=== PATIENT | female | born 1955 | race Caucasian/White ===

== ENCOUNTER → 2018-08-27 11:59 | Outpatient (CLI) | payer MEDICARE, SELFPAY | PROVIDERS: Family Provider Family Medicine; PCP Family Medicine; Visit Provider Physician Assistant | DX: N63.20 Unspecified lump in the left breast, unspecified quadrant (principal) ==

== ENCOUNTER → 2018-10-03 13:32 | Outpatient (CLI) | payer MEDICARE, SELFPAY ==
--- NOTE | 2018-10-03 13:34 | DI.MG.S_ITS ---
BILATERAL DIGITAL DIAGNOSTIC MAMMOGRAM 3D/2D SHORT-TERM FOLLOW-UP: 10/03/2018 CLINICAL: Patient returns for 6 month follow up of left breast, due for bilateral exam. Comparison is made to exams dated: 08/22/2017 mammogram - [facility], 12/08/2009 mammogram, and 05/04/2007 mammogram - [facility]. The tissue of both breasts is predominantly fatty. No significant masses, calcifications, or other findings are seen in either breast. IMPRESSION: INCOMPLETE: NEEDS ADDITIONAL IMAGING EVALUATION There is no mammographic abnormality seen in the left breast to correspond with the ultrasound finding from September,, however, ultrasound is recommended for follow up and will be performed immediatly following this exam. This exam was interpreted at Station ID: [id number]. NOTE: For mammograms, a report in lay terms will be sent to the patient. Approximately 15% of breast malignancies will not be visualized mammographically. In the management of a palpable breast mass, a negative mammogram must not discourage biopsy of a clinically suspicious lesion. Electronically Signed By: Denise Celis M.D. lk/:10/04/2018 08:09:05 ACR BI-RADS Category 0: Incomplete [id number]
--- NOTE | 2018-10-03 13:34 | DI.US.S_ITS ---
ULTRASOUND OF LEFT BREAST: 10/03/2018 CLINICAL: Patient returns for follow-up of the left breast ultrasound. Comparison is made to exams dated: 08/22/2017 ultrasound, 08/22/2017 mammogram - [facility], and 12/08/2009 mammogram - [facility]. Ultrasound of the left breast was performed on the area of interest. Castillo scale images of the real-time examination were reviewed. The oval complicated cyst in the left breast at 12 o'clock middle depth seen on the prior breast ultrasound dated 08/22/17 is no longer seen. IMPRESSION: BENIGN There is no sonographic evidence of malignancy. A 1 year screening mammogram is recommended. This exam was interpreted at Station ID: [id number]. Electronically Signed By: Denise vázquez/:10/04/2018 08:09:55 letter sent: Normal Exam Ultrasound BI-RADS: 2 Benign
== END ==
PROVIDERS: PCP Physician Assistant; Visit Provider Physician Assistant
DX: R92.8 Other abnormal and inconclusive findings on diagnostic imaging of breast (principal)
CPT/HCPCS: 76642; 77066; G0279

== ENCOUNTER → 2018-12-03 10:37 | Outpatient (CLI) | payer MEDICARE, SELFPAY ==
[2018-12-03 12:06] LABS: Alanine Aminotransferase 58 IU/L (9-52); Albumin 4.3 g/dL (3.5-5.0); Albumin Globulin Ratio 1.6 (1.0-2.8); Alkaline Phosphatase 59 U/L (38-126); Aspartate Aminotransferase 50 IU/L (14-36); BUN Creatinine Ratio 21.4 (6-22); Bilirubin Total 1.2 mg/dL (0.2-1.3); Blood Urea Nitrogen 15 mg/dL (7-17); Calcium 9.7 mg/dL (8.4-10.2); Carbon Dioxide 30 mmol/L (22-32); Chloride 100 mmol/L (98-107); Cholesterol 245 mg/dL (140-199); Estimated Glomerular Filt Rate > 60.0 mL/min (>60); Globulin 2.7 g/dL (1.7-4.1); Glucose 86 mg/dL (80-110); HDL Cholesterol 45 mg/dL (40-60); HEMOLYSIS < 15 (0-50); LDL Cholesterol Calculated 157 mg/dL (<100); Sodium 137 mmol/L (137-145); Triglycerides 217 mg/dL (35-150)
[2018-12-03 12:09] LABS: Potassium 5.6 mmol/L (3.4-5.1)
[2018-12-03 12:21] LABS: Free T3, Triiodothyronine Free 1.94 pg/mL (2.77-5.27); Free T4, Direct Thyroxine 0.31 ng/dL (0.78-2.19)
== END ==
PROVIDERS: PCP Physician Assistant; Visit Provider Physician Assistant
DX: E03.9 Hypothyroidism, unspecified (principal); E78.5 Hyperlipidemia, unspecified
CPT/HCPCS: 36415; 80053; 80061; 84439; 84443; 84481

== ENCOUNTER → 2019-03-19 15:49 | Outpatient (CLI) | payer MEDICARE, SELFPAY ==
[2019-03-19 16:27] LABS: Add Manual Diff / Slide Review NO; Basophils Absolute Auto 100 /uL (0-100); Basophils Percent Auto 0.5 % (0-2); Eosinophils Absolute Auto 100 /uL (0-450); Eosinophils Percent Auto 0.3 % (2-4); Hematocrit 40.2 % (36-46); Lymphocytes Absolute Auto 3100 /uL (1100-4500); Lymphocytes Percent Auto 16.7 % (25-40); Mean Corpuscular HGB Conc 32.4 % (30-36); Mean Corpuscular Volume 89.5 fL (80-100); Monocytes Absolute Auto 1200 /uL (0-900); Monocytes Percent Auto 6.5 % (3-14); Neutrophils Absolute Auto 14200 /uL (1500-7000); Platelet Count 370 X10^3/uL (150-400); Red Blood Cell Count 4.49 X10^6/uL (4.0-5.2); Red Cell Distribution Width 14.7 % (11.6-14.8); White Blood Cell Count 18.7 X10^3/uL (4.5-11.0)
[2019-03-19 16:48] LABS: Erythrocyte Sedimentation Rate 21 MM/HR (0-20)
[2019-03-19 17:25] LABS: C-Reactive Protein Quant 2.1 mg/dL (<1.0); Uric Acid 3.8 mg/dL (2.5-6.2)
[2019-03-19 17:27] LABS: Rheumatoid Factor < 8.6 IU/mL (<12.0)
[2019-03-19 17:30] LABS: Alanine Aminotransferase 33 IU/L (<35); Albumin 4.2 g/dL (3.5-5.0); Albumin Globulin Ratio 1.7 (1.0-2.8); Alkaline Phosphatase 64 U/L (38-126); Aspartate Aminotransferase 20 IU/L (14-36); BUN Creatinine Ratio 36.7 (6-22); Bilirubin Total 0.6 mg/dL (0.2-1.3); Blood Urea Nitrogen 22 mg/dL (7-17); Calcium 9.6 mg/dL (8.4-10.2); Carbon Dioxide 27 mmol/L (22-32); Chloride 97 mmol/L (98-107); Cholesterol 205 mg/dL (140-199); Estimated Glomerular Filt Rate > 60.0 mL/min (>60); Globulin 2.5 g/dL (1.7-4.1); Glucose 95 mg/dL (80-110); HDL Cholesterol 49 mg/dL (40-60); HEMOLYSIS < 15 (0-50); LDL Cholesterol Calculated 86 mg/dL (<100); Sodium 135 mmol/L (137-145); Total Protein 6.7 g/dL (6.3-8.2); Triglycerides 348 mg/dL (35-150)
[2019-03-19 18:00] LABS: Thyroid Stimulating Hormone 0.83 uIU/mL (0.47-4.68)
[2019-03-22 17:29] LABS: ANA Pattern NUCLEAR, SPECKLED; ANA Screen, IFA POSITIVE (NEGATIVE)
== END ==
PROVIDERS: PCP Physician Assistant; Visit Provider Orthopaedic Surgery
DX: M25.551 Pain in right hip (principal); M25.561 Pain in right knee; E03.9 Hypothyroidism, unspecified; E78.5 Hyperlipidemia, unspecified; E87.5 Hyperkalemia; R74.8 Abnormal levels of other serum enzymes; R79.89 Other specified abnormal findings of blood chemistry
CPT/HCPCS: 36415; 80053; 80061; 84443; 84550; 85025; 85651; 86038; 86140; 86430

== ENCOUNTER → 2019-03-28 17:34 | Outpatient (CLI) | payer MEDICARE, OTHER, SELFPAY ==
--- NOTE | 2019-03-28 | DI.MRI.S_ITS ---
PROCEDURE: MR KNEE RT WO CON INDICATIONS: right anterior knee pain TECHNIQUE: Noncontrast sagittal PD fast spin echo and T2 fast spin echo with fat saturation, sagittal 3-D FLASH with fat saturation; coronal T1 spin echo and PD fast spin echo with fat saturation, and axial PD fast spin echo with fat saturation through the knee. COMPARISON: [facility] [place], CR, XR KNEE ARTHRITIC SERIES RT, 03/18/2019, 16:49. FINDINGS: Image quality: Excellent. Menisci: There is mild medial extrusion of the medial meniscus. Linear oblique high T2 signal intensity traverses the medial meniscal body and posterior horn, demonstrating inferior articular surface extension. Amorphous high signal intensity within the free edge of the lateral meniscal body is present, demonstrating superior and inferior articular surface extension is, indicating degenerative tearing. Cruciate ligaments: There is mild T2 signal elevation within and surrounding the anterior cruciate ligament. Posterior cruciate ligament is intact. Medial structures: The medial collateral ligament appears intact. Mild T2 signal elevation deep to the medial collateral ligament is present. Visualized portions of the pes anserinus tendons appear normal. No abnormal bursal fluid. Lateral structures: The lateral collateral ligament, long and short heads of the biceps femoris tendon appear intact. The popliteus tendon appears normal. Iliotibial band appears normal. Anterior structures: The quadriceps and patellar tendons appear intact. Patellar alignment is normal. No femoral trochlear dysplasia or ventral trochlear prominence. No edema in the infrapatellar fat pad. Bones and cartilage: No bone marrow contusions or fractures. Moderate diffuse articular cartilage loss overlies the weightbearing aspects of the medial femoral condyle and medial tibial plateau. Mild diffuse articular cartilage loss overlies the weightbearing aspect of the lateral femoral condyle and lateral tibial plateau. Moderate articular cartilage loss overlies the patellar apex and medial facet. Joint space: There is physiologic knee joint fluid. Small Bravo's cyst. Normal appearing synovial plicae are incidentally noted. IMPRESSION: 1. Tricompartmental osteoarthritis with associated articular cartilage loss. 2. Medial and lateral meniscal tearing. 3. MCL strain. 4. Mild ACL strain. 5. Bravo's cyst. Dictated by: Sachin Laird M.D. on 03/29/2019 at 9:02 Approved by: Sachin Laird M.D. on 03/29/2019 at 9:06
== END ==
PROVIDERS: PCP Physician Assistant; Visit Provider Orthopaedic Surgery
DX: M25.561 Pain in right knee (principal); M17.11 Unilateral primary osteoarthritis, right knee; S83.241A Other tear of medial meniscus, current injury, right knee, initial encounter; S83.281A Other tear of lateral meniscus, current injury, right knee, initial encounter; S83.411A Sprain of medial collateral ligament of right knee, initial encounter; M71.21 Synovial cyst of popliteal space [Baker], right knee
CPT/HCPCS: 73721

== ENCOUNTER 2019-04-22 13:06 | Emergency (ER) | payer MEDICARE, SELFPAY ==
[2019-04-22 13:07] VITALS: BP 131/76; PULSE 106; RESP 18; TEMP 36.6; O2SAT 98
[2019-04-22 14:18] LABS: Add Manual Diff / Slide Review NO; Basophils Absolute Auto 100 /uL (0-100); Basophils Percent Auto 0.6 % (0-2); Eosinophils Absolute Auto 100 /uL (0-450); Eosinophils Percent Auto 0.6 % (2-4); Hemoglobin 13.7 g/dL (12.0-16.0); Lymphocytes Absolute Auto 2100 /uL (1100-4500); Lymphocytes Percent Auto 19.7 % (25-40); Mean Corpuscular HGB Conc 33.5 % (30-36); Mean Corpuscular Hemoglobin 29.5 PG (26-34); Monocytes Absolute Auto 600 /uL (0-900); Monocytes Percent Auto 5.9 % (3-14); Neutrophils Absolute Auto 7600 /uL (1500-7000); Neutrophils Percent Auto 73.2 % (50-75); Platelet Count 349 X10^3/uL (150-400); Red Blood Cell Count 4.66 X10^6/uL (4.0-5.2); Red Cell Distribution Width 15.6 % (11.6-14.8); White Blood Cell Count 10.4 X10^3/uL (4.5-11.0)
[2019-04-22 14:32] LABS: Acetaminophen < 10 ug/mL (10-30); Alanine Aminotransferase 31 IU/L (<35); Albumin 4.4 g/dL (3.5-5.0); Albumin Globulin Ratio 1.6 (1.0-2.8); Alkaline Phosphatase 52 U/L (38-126); Aspartate Aminotransferase 26 IU/L (14-36); BUN Creatinine Ratio 28.3 (6-22); Bilirubin Total 1.2 mg/dL (0.2-1.3); Blood Urea Nitrogen 17 mg/dL (7-17); Calcium 9.7 mg/dL (8.4-10.2); Carbon Dioxide 32 mmol/L (22-32); Chloride 96 mmol/L (98-107); Estimated Glomerular Filt Rate > 60.0 mL/min (>60); Ethanol (ETOH) < 10 mg/dL; Globulin 2.7 g/dL (1.7-4.1); Glucose 141 mg/dL (80-110); HEMOLYSIS < 15 (0-50); Potassium 3.6 mmol/L (3.4-5.1); Salicylate < 1.0 mg/dL (<20); Sodium 138 mmol/L (137-145); Total Protein 7.1 g/dL (6.3-8.2)
[2019-04-22 15:03] LABS: Free T4, Direct Thyroxine 0.95 ng/dL (0.78-2.19)
[2019-04-22 15:10] LABS: UR Morphine/Opiate cutoff 300 Negative (Negative); Ur Creatinine Normal (Normal); Ur Specific Gravity Normal (Normal); Urine Amphetamines Negative (Negative); Urine Cocaine Negative (Negative); Urine Methamphetamines Negative (Negative); Urine Tetrahydrocannabinol Negative (Negative); Urine pH Normal (Normal)
[2019-04-22 15:11] LABS: Urine Barbiturates Negative (Negative); Urine Benzodiazepines Negative (Negative); Urine MDMA Negative (Negative); Urine Methadone Negative (Negative); Urine Oxycodone Negative (Negative); Urine Phencyclidine Negative (Negative); Urine Tricyclic Antidepressant Negative (Negative)
[2019-04-22 15:17] LABS: Thyroid Stimulating Hormone 3.29 uIU/mL (0.47-4.68)
--- NOTE | 2019-04-22 15:30 | PC.NURSE ---
Patient reports she is concerned that maybe her paxil was and that is why she is feeling this way. She states that her old and new pills got mixed together her bottle had expiration date of 2016.
--- NOTE | 2019-04-22 16:26 | ED_ITS ---
HPI - Psych General Chief Complaint: Psychiatric Symptoms Stated Complaint: depression Time Seen by Provider: 04/22/19 13:30 Source: patient Mode of arrival: Ambulatory Limitations: no limitations History of Present Illness HPI Narrative: Patient comes emergency department complaining of depression and anxiety. She has also had some suicidal ideation. Patient states that she has been on Paxil for long time, but it doesn't seem to be working lately. She states that she has had a stressful last year with her mother being ill and the patient caring for her. She states her mother recently and that there has been a lot of strife between the siblings over the settling of the mother's estate. Patient states she tried moving to [place] to get away from everything and gave away her dog whom she loves very much. However, she did not feel things the working out in [place], so she came back to [facility], where she in her family have lived for several generations. Patient states that she just feels alone and is concerned that she is not safe being home by herself with her suicidal thoughts. She does note that her Quaker colton is a preventative factor in committing suicide. Patient denies being ill recently or using any substances. She denies any dose changes to her medications. She does note that she is not sleeping well, and thinks this is making everything worse for her. Related Data Home Medications Medication Instructions Recorded Confirmed melatonin 5 mg PO BEDTIME #0 11/30/11 04/22/19 Respironics Dreamstation CPAP #1 ea 02/04/19 04/22/19 paroxetine HCl [Paxil] 20 mg PO DAILY 04/22/19 04/22/19 prednisone 10 mg PO DAILY 04/22/19 04/22/19 Previous Rx's Medication Instructions Recorded clonazepam 0.5 mg tablet 0.5 mg PO Q 12-24 HRS #180 tab 12/06/18 levothyroxine 75 mcg tablet 75 mcg PO QAM #90 tab 12/06/18 montelukast 10 mg tablet 10 mg PO HS #90 tab 12/06/18 pneumoc 13-franklin conj-dip cr(PF) 0.5 0.5 ml IM ONCE #0.5 ml 12/06/18 mL IM syringe varicella-zoster [id number] (PF) 50 50 mcg IM ONCE #1 each 12/06/18 mcg/0.5 mL IM susp, kit Allergies Allergy/AdvReac Type Severity Reaction Status Date / Time levothyroxine sodium AdvReac Severe hives/welts Verified 12/06/18 10:34 [LEVOTHYROXINE SODIUM] Review of Systems Review of Systems ROS Unobtainable: All systems reviewed & are unremarkable except as noted in HPI and below Constitutional Constitutional: Denies chills, Denies fatigue, Denies fever(s), Denies frequent falls, Denies lethargy and Denies weakness Eyes Eyes: Denies change in vision, Denies eye discharge, Denies irritation and Denies loss of vision ENT Ears, Nose, Mouth, and Throat: Denies change in voice, Denies dizziness, Denies neck pain, Denies sore throat and Denies throat swelling Cardiovascular Cardiovascular: Denies chest pain, Denies irregular heart rhythm, Denies lightheadedness, Denies palpitations, Denies dyspnea, Denies dyspnea on exertion and Denies orthopnea Respiratory Respiratory: Denies cough, Denies dyspnea, Denies dyspnea on exertion and Denies wheezing Gastrointestinal Gastrointestinal: Denies abdominal pain, Denies change in bowel habits, Denies diarrhea, Denies nausea and Denies vomiting Genitourinary Genitourinary: Denies hematuria, Denies flank pain, Denies urinary incontinence and Denies urinary urgency Musculoskeletal Musculoskeletal: Denies back pain, Denies muscle weakness, Denies neck pain, Denies numbness and Denies tingling Integumentary/Breasts Skin/Breast: Denies pruritus, Denies erythema, Denies rash and Denies wounds Neurologic Neurologic: Denies behavioral changes, Denies confusion, Denies dizziness, Denies frequent falls, Denies loss of vision, Denies numbness, Denies tingling and Denies weakness Psychiatric Psychiatric: Reports anxiety, Denies behavioral changes, Denies confusion, Repo rts depression, Denies homicidal ideation and Denies suicidal ideation Endocrine Endocrine: Denies fatigue, Denies flushing and Denies palpitations Hematologic/Lymphatic Hematologic/Lymphatic: Denies easy bruising Allergic/Immunologic Allergic/Immunologic: Denies urticaria, Denies throat swelling and Denies wheezing Patient History Medical History Anxiety (Chronic) Basal cell carcinoma (Resolved 2007) Chronic sinusitis (Chronic) Depression (Chronic) Fatigue (Chronic) Hyperlipemia (Chronic) Hypothyroidism (Chronic) Insomnia (Chronic) Obstructive sleep apnea (Suspected) Surgical History Hx of surgical procedure (Resolved) Status post knee surgery (03/2017) Family History Mother Age: 95 Arthritis Sister Age: 68 Hypertension Arthritis Father No problems noted. Social History Smoking Status: Never smoker second hand exposure: No alcohol intake: current (merly about once a year.) substance use type: marijuana (I vape CBD oil maybe twice a week for pain when I go to bed.) Smoking Status: Never smoker alcohol intake frequency: 0-2 drinks per day Substance Use Type: does not use Exam Initial Vital Signs Initial Vital Signs: Vital Signs Temperature 97.8 F 04/22/19 13:07 Pulse Rate 106 H 04/22/19 13:07 Respiratory Rate 18 04/22/19 13:07 Blood Pressure 131/76 04/22/19 13:07 Pulse Oximetry 98 04/22/19 13:07 Const General: cooperative and well developed Nutritional Appearance: well nourished Orientation: alert, awake, oriented x3 and not confused [facility] Head: normocephalic and atraumatic Ears: external ears normal Nose: external nose normal and No nasal discharge Face and sinus: face symmetric, no sinus tenderness and No dry mucous membranes Mouth: oral mucosae normal and moist mucous membranes Teeth and gingiva: dentition normal Eyes General: appearance normal, both eyes and all related structures Eyelids: eyelids normal Conjunctivae: conjunctivae normal Sclera: sclerae normal Pupils: PERRL EOM: EOM intact bilaterally Neck Neck: normal visual inspection, trachea midline, No lymphadenopathy, No midline deformity and No JVD Lymphatic: No lymphedema Chest Chest: normal inspection of the chest Resp Effort & Inspection: normal respiratory effort, able to speak in complete sentences, no respiratory distress and no use of accessory muscles Auscultation: clear to auscultation bilaterally, no rales, no rhonchi and no wheezes Cardio Rate: regular rate Rhythm: regular rhythm Heart Sounds: no click, no gallops, no murmurs and no rubs Pulses: normal peripheral pulses GI Inspection: non-distended Palpation: soft, no hepatosplenomegaly, No guarding, No pulsatile mass and No tender Auscultation: normal bowel sounds Back/Spine/Pelvis Back: No CVA tenderness Cervical Spine: cervical ROM normal and No pain with cervical ROM Thoracic/Lumbar Spine: thoracic and lumbar spine normal to inspection Skin General: no rashes or lesions noted, No jaundice and No petechiae Neuro General: alert, oriented x3, gait normal and no focal motor deficits Speech: speech normal Extrem General: full ROM, no clubbing, cyanosis or edema, no pedal edema and no calf tenderness Psych Appearance: well kempt Mental Status: mental status grossly normal Attitude: cooperative Thought Content: normal and suicidality Judgment: judgment good Course Course Course Narrative: Patient was worked up with clearance labs and social work was consulted. The patient remained stable throughout her stay in the emergency department. She was evaluated by social service assistant, who is currently looking options for inpatient treatment for the patient. The patient was signed out to Dr. Amos Chase at change of shift, pending final disposition. Orders Ordered: ED Orders 04/22/19 14:11 Acetaminophen Stat Complete Blood Count AUTO DIFF Stat Comprehensive Metabolic Panel Stat Ethanol (ETOH) Stat Free T4, Direct Thyroxine Stat Salicylate Stat Thyroid Stimulating Hormone Stat 04/22/19 14:34 Consult to INSIDE POLISHER - Cheese Wrapper Stat 04/22/19 14:45 Urine Drug Screen, Rapid Stat 04/22/19 19:28 EKG-12 Lead Stat Vital Signs Vital signs: Vital Signs - 8 hr 04/22/19 13:07 Temperature 97.8 F Pulse Rate 106 H Respiratory Rate 18 Blood Pressure 131/76 Pulse Oximetry 98 [facility] - Psych Medical Records Attestation: I reviewed the patient's medical records. Lab Data Attestation: I reviewed the patient's lab results. Result diagrams: 04/22/19 14:11 04/22/19 14:11 Labs: Lab Results 04/22/19 04/22/19 04/22/19 Range/Units 14:11 14:11 14:11 WBC 10.4 (4.5-11.0) X10^3/uL RBC 4.66 (4.0-5.2) X10^6/uL Hgb 13.7 (12.0-16.0) g/dL Hct 41.0 (36-46) % MCV 88.0 (80-100) fL MCH 29.5 (26-34) PG MCHC 33.5 (30-36) % RDW 15.6 H (11.6-14.8) % Plt Count 349 (150-400) X10^3/uL Neut % (Auto) 73.2 (50-75) % Lymph % (Auto) 19.7 L (25-40) % [place] % (Auto) 5.9 (3-14) % Eos % (Auto) 0.6 L (2-4) % Baso % (Auto) 0.6 (0-2) % Neut # (Auto) 7600 H (6274-1643) /uL Lymph # (Auto) 2100 (9483-7247) /uL [place] # (Auto) 600 (0-900) /uL Eos # (Auto) 100 (0-450) /uL Baso # (Auto) 100 (0-100) /uL Sodium 138 (137-145) mmol/L Potassium 3.6 (3.4-5.1) mmol/L Chloride 96 L (98-107) mmol/L Carbon Dioxide 32 (22-32) mmol/L BUN 17 (7-17) mg/dL Creatinine 0.60 (0.52-1.04) mg/dL Estimated GFR > 60.0 (>60) mL/min BUN/Creatinine Ratio 28.3 H (6-22) Glucose 141 H (80-110) mg/dL Calcium 9.7 (8.4-10.2) mg/dL Total Bilirubin 1.2 (0.2-1.3) mg/dL AST 26 (14-36) IU/L ALT 31 (<35) IU/L Alkaline Phosphatase 52 (38-126) U/L Total Protein 7.1 (6.3-8.2) g/dL Albumin 4.4 (3.5-5.0) g/dL Globulin 2.7 (1.7-4.1) g/dL Albumin/Globulin Ratio 1.6 (1.0-2.8) TSH 3.29 (0.47-4.68) uIU/mL Free T4 0.95 (0.78-2.19) ng/dL Salicylates < 1.0 (<20) mg/dL U Opiates 300ng/mL cut (Negative) Ur Oxycodone Screen (Negative) Urine Methadone Screen (Negative) Acetaminophen < 10 L (10-30) ug/mL Ur Barbiturates Screen (Negative) U Tricyclic Antidepress (Negative) Ur Phencyclidine Scrn (Negative) Ur Amphetamines Screen (Negative) U Methamphetamines Scrn (Negative) Ur MDMA Scrn (Ecstasy) (Negative) U Benzodiazepines Scrn (Negative) Urine Cocaine Screen (Negative) U Marijuana (THC) Screen (Negative) Ethyl Alcohol < 10 ( - 10) mg/dL 04/22/19 Range/Units 14:45 WBC (4.5-11.0) X10^3/uL RBC (4.0-5.2) X10^6/uL Hgb (12.0-16.0) g/dL Hct (36-46) % MCV (80-100) fL MCH (26-34) PG MCHC (30-36) % RDW (11.6-14.8) % Plt Count (150-400) X10^3/uL Neut % (Auto) (50-75) % Lymph % (Auto) (25-40) % [place] % (Auto) (3-14) % Eos % (Auto) (2-4) % Baso % (Auto) (0-2) % Neut # (Auto) (8314-6445) /uL Lymph # (Auto) (4210-7394) /uL [place] # (Auto) (0-900) /uL Eos # (Auto) (0-450) /uL Baso # (Auto) (0-100) /uL Sodium (137-145) mmol/L Potassium (3.4-5.1) mmol/L Chloride (98-107) mmol/L Carbon Dioxide (22-32) mmol/L BUN (7-17) mg/dL Creatinine (0.52-1.04) mg/dL Estimated GFR (>60) mL/min BUN/Creatinine Ratio (6-22) Glucose (80-110) mg/dL Calcium (8.4-10.2) mg/dL Total Bilirubin (0.2-1.3) mg/dL AST (14-36) IU/L ALT (<35) IU/L Alkaline Phosphatase (38-126) U/L Total Protein (6.3-8.2) g/dL Albumin (3.5-5.0) g/dL Globulin (1.7-4.1) g/dL Albumin/Globulin Ratio (1.0-2.8) TSH (0.47-4.68) uIU/mL Free T4 (0.78-2.19) ng/dL Salicylates (<20) mg/dL U Opiates 300ng/mL cut Negative (Negative) Ur Oxycodone Screen Negative (Negative) Urine Methadone Screen Negative (Negative) Acetaminophen (10-30) ug/mL Ur Barbiturates Screen Negative (Negative) U Tricyclic Antidepress Negative (Negative) Ur Phencyclidine Scrn Negative (Negative) Ur Amphetamines Screen Negative (Negative) U Methamphetamines Scrn Negative (Negative) Ur MDMA Scrn (Ecstasy) Negative (Negative) U Benzodiazepines Scrn Negative (Negative) Urine Cocaine Screen Negative (Negative) U Marijuana (THC) Screen Negative (Negative) Ethyl Alcohol ( - 10) mg/dL Urine Dip Bedside Urine Glucose Negative Bedside Urine Bilirubin - Negative Bedside Urine Ketone - Negative Urine Specific Ebony 1.015 Bedside Urine Occult Blood - Negative Bedside Urine pH 6.0 Bedside Urine Protein - Negative Bedside Urine Urobilinogen - Negative Bedside Urine Nitrite - Negative Bedside Urine Leukocytes - Negative Esterase Discharge Plan Departure Prescriptions: No Action melatonin 5 MG tablet 5 mg PO BEDTIME Qty: 0 RF: 0 (DME) Respironics Dreamstation CPAP Qty: 1 RF: 0 levothyroxine [Synthroid] 75 mcg tablet 75 mcg PO QAM Qty: 90 RF: 3 montelukast [Singulair] 10 mg tablet 10 mg PO HS Qty: 90 RF: 3 Prevnar 13 (PF) 0.5 mL syringe 0.5 ml IM ONCE Qty: 0.5 RF: 0 Shingrix (PF) 50 mcg/0.5 mL suspension for reconstitution 50 mcg IM ONCE Qty: 1 RF: 1 clonazepam 0.5 mg tablet 0.5 mg PO Q 12-24 HRS Qty: 180 RF: 0 prednisone 10 mg tablet 10 mg PO DAILY RF: 0 paroxetine HCl [Paxil] 20 mg tablet 20 mg PO DAILY RF: 0
--- NOTE | 2019-04-22 16:58 | PC.NURSE ---
Mandy contracts for safety in department
--- NOTE | 2019-04-22 16:59 | PC.NURSE ---
no changes from initial assessment. Patietn remains calm and cooperative resting. Warm blankets and water provided.
--- NOTE | 2019-04-22 18:35 | PC.NURSE ---
Thalia from care management at bedside
--- NOTE | 2019-04-22 19:06 | PC.NURSE ---
No changes in pervious assessment. Patient continues to be calm and cooperative.
--- NOTE | 2019-04-22 20:17 | CM.SWNOTE ---
Addendum entered by Thalia Spangler R.N. 04/22/19 20:33: CM/Rn Contacted [facility] and clinicals set they currently have a bed available in exchange and they are reviewing for acceptance to that facility. CM/RN also contacted [facility] and sent clinicals and they are reviewing. [facility] called back and they asked to have an EKG done on the patient since she is over 48 yrs old. CM/RN contacted ED physician and EKG order placed. CM/RN faxed EKG copy to [facility] and [facility] to review. Let ED know CM/RN will be off soon and that LIQUOR COMMISSIONER jenn will be back at 7:45Am tomorrow 04/23/2019. Thalia Spangler RN. Original Note: TIFFANY/RN Note: EMR reviewed: Patient is a 64 yr old female who was admitted to [facility] ED on 04/22/2019 for S.I. CM/RN attempting to locate Voluntary MH placement. CM/RN - Clinical Courier Assessment LIQUOR COMMISSIONER - Clinical Courier Assessment Start: 04/22/19 19:29 Freq: Status: Active Protocol: Document 04/22/19 19:29 HS (Rec: 04/22/19 20:16 HS [id number]) LIQUOR COMMISSIONER/Clinical Courier Assessment Time Spent with Patient Start date 04/22/19 Visit Start Time 18:30 End date 04/22/19 Visit End Time 19:20 Total time Care Management spent on 120 minutes patient visit-in minutes Mental Health Screening Include Onset, Duration, Intensity Presenting Problem Patient presented to the ED complaining of S.I. anxiety and inability to sleep x4 days . Precipitating Event(s) Patient stated she has been struggling with Depression and axiety off and on since 1984 but patients mother about a year ago and patients been struggling with depression and anxiety ever since. Patient stated about 5 days ago it became increasingly difficult to sleep and patient reports she hasn't slept in 4 days and thats when S.I. became difficult. Current Behavioral Health Provider(s) Patients PCP is Dr. Jennifer Carson Include Facility, Provider, Ph. # at [facility] in [facility]. Patient does not currently have a counsilor or a Psyciatric provider. Psych. Hx Mental Health and Chemical Patient states she has never Dependency struggled with Chemical dependancy. Patient was Dx with depression and axiety in 1984 and has been on Paxil and clonazopam for years. Psychiatric Hospitalizations (date(s)/ None location) Support System(s) patient is activly involved in her hinduism [employer]. Patient does not talk with her siblings due to family falling out over mothers estate a few months ago. School/Work retired Mental Status Orientation (Person/Place/Time) Patient was alert and oriented x3 at the time of CM/RN visit . Affect Patient affect was sad and emotional (crying) during CM/ RN visit. Thought Content - Specify/Describe Patient stats she has been Obsessions, Delusions, Hallucinations very depressed and has not been able to sleep. She states she has thoughts of drowning herself in her bath tub or taking her Kayak out in the ocean and flipping it to drown herself. Thought Processes (Araonxh-Qqaakmir-Jhlh Logical and coherent Qkuzthuy-Iyjygpnb-Ukzojmsxbz- Uevmnkkfchwwlh-Wglkinx-Qynyqmwlveqx- Thought Blocking) Speech (Tvtqgn-Bjhi-Zwrgkog-Rapid-Soft- Slow and soft Loud-Pressured) Motor (Uehxtm-Spjdzjqno-Meoc-Other) normal Insight (Present-Partially Present- Present Impaired) Judgement (Intact-Impaired) Intact Impulse Control (Adequate-Impaired) adequate Memory (Ftcbgukgw-Fjgndz-Exctbf, Intact Impaired-Intact) Concentration (Intact-Impaired) intact but slow Attention (Intact-Impaired) intact Behavior (Appropriate-Inappropriate) appropriate Risk Assessment Suicidal Ideation (Plan) Yes: Patients plan is to drown herself by flipping her Kayak in the ocean Homicidal Ideation (Plan) No Intervention Intervention CM met with patient at the bedside and explained role. patient appeared calm and was lying in bed during CM/RN Visit. Patient was very emotional during visit periodically crying. Patient stated she needs help for depression, Axiety and her S.I . CM/RN talked with patient at length about out patient options, next day appointment with [facility], PCP appointment for medication management. Patient states she does not feel safe to be alone at home and does not currently have family or friends who would help. Yoselin does not have a counsilor and patients PCP manages her medications currently but is challenging to get into. CM/RN talked with patient about inpatient options for mental health stabilization and medication management. Patient stated she is willing to go to IP treatment. Plan RA Plan CM/R spoke with ED physician and determined that IP treatment would be benificial for patient at this time. CM/ RN will attempt to find Voluntary Inpatient treatment placement for patient for mental health stabilization and medication management.
[2019-04-22 22:07] VITALS: BP 129/78; PULSE 78; RESP 16; O2SAT 97
[2019-04-22] MEDS: LORazepam 0.5 MG TABLET PO (22:30)
--- NOTE | 2019-04-22 23:19 | PC.NURSE ---
per provider patient okay to take home medication of synthroid. patient given 1 tab of synthroid (75mcg) from home medication bottle. provider aware and no new orders at this time.
--- NOTE | 2019-04-22 23:24 | PC.NURSE ---
Raoul from [facility] called and reports that the patient has been accepted by Dr. Rivka Whitlock. The patient can arrive at [facility] anytime in the morning after 6am (04/23/2019). provider notified and aware.
[2019-04-22 23:30] VITALS: BP 106/65; PULSE 76; RESP 16; O2SAT 98
--- NOTE | 2019-04-22 23:41 | PC.NURSE ---
patient states that she is hungry. patient given egg salad sandwich, yogurt, pudding, cheese, joann crackers and orange juice. provider aware and no new orders at this time.
[2019-04-23] MEDS: LORazepam 0.5 MG TABLET PO (00:41)
[2019-04-23] MEDS: ACETAMINOPHEN 325 MG TABLET 650 MG PO (07:29)
--- NOTE | 2019-04-23 07:46 | PC.NURSE ---
pt c/o bilateral shoulder arthritis, administered Tylenol for this pain. pt states she is feeling a little better since getting the ativan during the night. pt continues to feel depresses and having the pit in stomach feeling but not as bad.
[2019-04-23 08:07] VITALS: BP 135/80; PULSE 78; RESP 14; O2SAT 98
--- NOTE | 2019-04-23 09:02 | PC.NURSE ---
I updated the patient that [facility] wont be arriving until 1130, originally scheduled for 0800. Patient was understanding and I got her comfortable while she waits.
--- NOTE | 2019-04-23 09:08 | PC.NURSE ---
per dr christine pt to take daily meds clonazepam 0.5mg , and paxil 20mg
--- NOTE | 2019-04-23 10:40 | PC.NURSE ---
Addendum entered by Chandler Barnes CNA 04/23/19 10:43: A mail friend named David. 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
[2019-04-23 11:14] VITALS: BP 135/78; PULSE 106; RESP 18; O2SAT 96
== END 2019-04-23 11:24 ==
PROVIDERS: Emergency Provider Emergency Medicine; PCP Physician Assistant
DX: F32.9 Major depressive disorder, single episode, unspecified (principal); F41.9 Anxiety disorder, unspecified; R45.851 Suicidal ideations
CPT/HCPCS: 36415; 80053; 80305; 80320; 80329; 81003; 84439; 84443; 85025; 93005; 99284; 99285; G0480

== ENCOUNTER → 2019-06-14 08:54 | Outpatient (CLI) | payer MEDICARE, SELFPAY ==
[2019-06-14 09:56] LABS: Cholesterol 179 mg/dL (140-199); HDL Cholesterol 36 mg/dL (40-60); LDL Cholesterol Calculated 114 mg/dL (<100); Triglycerides 144 mg/dL (35-150)
[2019-06-14 10:45] LABS: Thyroid Stimulating Hormone 0.69 uIU/mL (0.47-4.68)
[2019-06-19 08:41] LABS: Arsenic 13 mcg/L (< 23); Lead, Blood 1 mcg/dL (< 5)
[2019-06-21 10:45] LABS: Mercury, Blood 2
== END ==
DX: E03.9 Hypothyroidism, unspecified (principal); E78.5 Hyperlipidemia, unspecified
CPT/HCPCS: 36415; 80061; 83825; 84443

== ENCOUNTER → 2019-06-28 07:57 | Outpatient (CLI) | payer MEDICARE, SELFPAY ==
--- NOTE | 2019-06-28 | DI.MRI.S_ITS ---
PROCEDURE: MR SHOULDER RT WO CON INDICATIONS: Adhesive capsulitis of right shoulder TECHNIQUE: Noncontrast oblique coronal T2 fast spin echo with fat saturation, oblique sagittal T1 spin echo and T2 fast spin echo with fat saturation, axial T1 spin echo and T2 fast spin echo with fat saturation through the shoulder. COMPARISON: None. FINDINGS: Image quality: Excellent. Rotator cuff: Tendinosis and moderate grade articular and bursal surface partial-thickness tear involving distal supraspinatus and infraspinatus at the insertion the humeral head extending to the musculotendinous junction is seen. Distal subscapularis tendinosis and low-grade intrasubstance partial thickness tear is also noted. Sagittal images demonstrate mild supraspinatus muscle atrophy. Bones and bursae: No bone marrow contusions or fractures. There is moderate acromioclavicular joint and glenohumeral joint osteoarthritis. Small amount of subacromial subdeltoid bursal fluid and glenohumeral joint fluid is seen. Capsule and soft tissues: In the absence of intra-articular contrast, there is suggestion of superior anterior labral tear at the 12 to 1:00 position. The glenohumeral ligaments appear intact. The long head of the biceps tendon demonstrates normal location and morphology. The rotator interval appears normal, without fibrosis. The coracohumeral ligament is normal in thickness. IMPRESSION: 1. Tendinosis and moderate grade articular and bursal surface partial-thickness tear involving distal supraspinatus and infraspinatus. Distal subscapularis tendinosis and low-grade intrasubstance partial-thickness tear. Mild supraspinatus muscle atrophy. 2. Moderate acromioclavicular joint and glenohumeral joint osteophytes. Small amount of joint effusion and subacromial subdeltoid bursal fluid. 3. Suggestion of superior anterior labral tear at 12 to 1:00 position. 4. No significant fibrosis is seen in the region of rotator interval. Dictated by: French Marquez M.D. on 06/28/2019 at 9:59 Approved by: French Marquez M.D. on 06/28/2019 at 10:02
== END ==
PROVIDERS: Visit Provider Orthopaedic Surgery
DX: M75.01 Adhesive capsulitis of right shoulder (principal); M19.011 Primary osteoarthritis, right shoulder; M75.111 Incomplete rotator cuff tear or rupture of right shoulder, not specified as traumatic; M25.411 Effusion, right shoulder
CPT/HCPCS: 73221

== ENCOUNTER → 2020-03-13 10:37 | Outpatient (CLI) | payer MEDICARE, SELFPAY ==
[2020-03-13 12:42] LABS: Add Manual Diff / Slide Review NO; Basophils Absolute Auto 0 /uL (0-100); Basophils Percent Auto 0.5 % (0-2); Eosinophils Absolute Auto 100 /uL (0-450); Eosinophils Percent Auto 1.6 % (2-4); Lymphocytes Absolute Auto 2100 /uL (1100-4500); Lymphocytes Percent Auto 32.3 % (25-40); Mean Corpuscular HGB Conc 34.1 % (30-36); Monocytes Absolute Auto 500 /uL (0-900); Monocytes Percent Auto 7.6 % (3-14); Neutrophils Absolute Auto 3800 /uL (1500-7000); Platelet Count 251 X10^3/uL (150-400); Red Blood Cell Count 4.67 X10^6/uL (4.0-5.2); Red Cell Distribution Width 14.3 % (11.6-14.8); White Blood Cell Count 6.5 X10^3/uL (4.5-11.0)
[2020-03-13 13:04] LABS: Erythrocyte Sedimentation Rate 16 MM/HR (0-20)
[2020-03-13 13:19] LABS: Alanine Aminotransferase 43 IU/L (<35); Albumin 4.1 g/dL (3.5-5.0); Albumin Globulin Ratio 1.6 (1.0-2.8); Alkaline Phosphatase 75 U/L (38-126); Aspartate Aminotransferase 37 IU/L (14-36); BUN Creatinine Ratio 26.3 (6-22); Bilirubin Total 1.4 mg/dL (0.2-1.3); Blood Urea Nitrogen 15 mg/dL (7-17); Calcium 9.3 mg/dL (8.4-10.2); Carbon Dioxide 31 mmol/L (22-32); Chloride 101 mmol/L (98-107); Cholesterol 214 mg/dL (140-199); Estimated Glomerular Filt Rate > 60.0 mL/min (>60); Globulin 2.5 g/dL (1.7-4.1); Glucose 84 mg/dL (80-110); HDL Cholesterol 34 mg/dL (40-60); HEMOLYSIS < 15 (0-50); LDL Cholesterol Calculated 135 mg/dL (<100); Potassium 4.3 mmol/L (3.4-5.1); Sodium 137 mmol/L (137-145); Total Protein 6.6 g/dL (6.3-8.2); Triglycerides 227 mg/dL (35-150)
[2020-03-13 13:36] LABS: Free T3, Triiodothyronine Free 2.75 pg/mL (2.77-5.27); Free T4, Direct Thyroxine 1.29 ng/dL (0.78-2.19)
[2020-03-13 13:38] LABS: Rheumatoid Factor < 8.6 IU/mL (<12.0)
[2020-03-13 13:49] LABS: Thyroid Stimulating Hormone 0.301 uIU/mL (0.47-4.68)
[2020-03-14 19:10] LABS: ANA Screen, IFA Positive (.)
[2020-03-16 21:36] LABS: CCP Antibodies IgG/IgA 10 units (0-19)
== END ==
PROVIDERS: PCP Family Medicine; Referring Provider Family Medicine; Visit Provider Family Medicine
DX: E03.9 Hypothyroidism, unspecified (principal); E78.5 Hyperlipidemia, unspecified; M25.50 Pain in unspecified joint
CPT/HCPCS: 36415; 80053; 80061; 84439; 84443; 84481; 85025; 85651; 86038; 86200; 86430

== ENCOUNTER → 2021-06-16 15:57 | Outpatient (CLI) | payer MEDICARE, OTHER, SELFPAY ==
[2021-06-16 17:50] LABS: Add Manual Diff / Slide Review NO; Basophils Absolute Auto 0 /uL (0-100); Basophils Percent Auto 0.6 % (0-2); Eosinophils Absolute Auto 100 /uL (0-450); Eosinophils Percent Auto 1.2 % (2-4); Hematocrit 39.8 % (36-46); Hemoglobin 13.5 g/dL (12.0-16.0); Lymphocytes Absolute Auto 2100 /uL (1100-4500); Lymphocytes Percent Auto 27.1 % (25-40); Mean Corpuscular HGB Conc 33.8 % (30-36); Mean Corpuscular Hemoglobin 29.7 PG (26-34); Mean Corpuscular Volume 87.7 fL (80-100); Monocytes Absolute Auto 600 /uL (0-900); Monocytes Percent Auto 7.6 % (3-14); Neutrophils Absolute Auto 5000 /uL (1500-7000); Neutrophils Percent Auto 63.5 % (50-75); Platelet Count 243 X10^3/uL (150-400); Red Blood Cell Count 4.54 X10^6/uL (4.0-5.2); Red Cell Distribution Width 13.8 % (11.6-14.8); White Blood Cell Count 7.9 X10^3/uL (4.5-11.0)
[2021-06-16 17:53] LABS: Alanine Aminotransferase 39 IU/L (<35); Albumin 4.2 g/dL (3.5-5.0); Albumin Globulin Ratio 1.6 (1.0-2.8); Alkaline Phosphatase 54 U/L (38-126); Aspartate Aminotransferase 31 IU/L (14-36); BUN Creatinine Ratio 31.7 (6-22); Blood Urea Nitrogen 19 mg/dL (7-17); Calcium 9.2 mg/dL (8.4-10.2); Carbon Dioxide 32 mmol/L (22-32); Chloride 104 mmol/L (98-107); Cholesterol 199 mg/dL (140-199); Estimated Glomerular Filt Rate > 60.0 mL/min (>60); Globulin 2.7 g/dL (1.7-4.1); Glucose 110 mg/dL (80-110); HDL Cholesterol 37 mg/dL (40-60); HEMOLYSIS < 15 (0-50); LDL Cholesterol Calculated 123 mg/dL (<100); Sodium 140 mmol/L (137-145); Total Protein 6.9 g/dL (6.3-8.2); Triglycerides 195 mg/dL (35-150)
[2021-06-16 18:10] LABS: Free T3, Triiodothyronine Free 3.29 pg/mL (2.77-5.27)
[2021-06-16 18:24] LABS: Thyroid Stimulating Hormone 0.081 uIU/mL (0.47-4.68)
[2021-06-16 18:28] LABS: Free T4, Direct Thyroxine 1.39 ng/dL (0.78-2.19)
== END ==
PROVIDERS: PCP Family Medicine; Referring Provider Family Medicine; Visit Provider Family Medicine
DX: E03.9 Hypothyroidism, unspecified (principal); E78.5 Hyperlipidemia, unspecified
CPT/HCPCS: 36415; 80053; 80061; 84439; 84443; 84481; 85025

== ENCOUNTER → 2021-11-09 15:23 | Outpatient (CLI) | payer MEDICARE, OTHER, SELFPAY ==
[2021-11-09 16:19] LABS: Cholesterol 185 mg/dL (140-199); HDL Cholesterol 38 mg/dL (40-60); LDL Cholesterol Calculated 108 mg/dL (<100); Triglycerides 194 mg/dL (35-150)
[2021-11-09 16:43] LABS: Free T3, Triiodothyronine Free 3.15 pg/mL (2.77-5.27); Free T4, Direct Thyroxine 1.36 ng/dL (0.78-2.19)
[2021-11-09 16:56] LABS: Thyroid Stimulating Hormone 0.092 uIU/mL (0.47-4.68)
== END ==
PROVIDERS: PCP Family Medicine; Referring Provider Family Medicine; Visit Provider Family Medicine
DX: E78.5 Hyperlipidemia, unspecified (principal); E03.9 Hypothyroidism, unspecified
CPT/HCPCS: 36415; 80061; 84439; 84443; 84481

== ENCOUNTER → 2022-08-08 14:10 | Outpatient (CLI) | payer MEDICARE, OTHER, SELFPAY ==
[2022-08-08 14:42] LABS: Add Manual Diff / Slide Review NO; Basophils Absolute Auto 0 /uL (0-100); Basophils Percent Auto 0.5 % (0-2); Eosinophils Absolute Auto 100 /uL (0-450); Eosinophils Percent Auto 1.1 % (2-4); Hematocrit 39.1 % (36-46); Lymphocytes Absolute Auto 2400 /uL (1100-4500); Lymphocytes Percent Auto 31.2 % (25-40); Mean Corpuscular HGB Conc 33.2 % (30-36); Mean Corpuscular Hemoglobin 28.8 PG (26-34); Mean Corpuscular Volume 86.9 fL (80-100); Monocytes Absolute Auto 600 /uL (0-900); Monocytes Percent Auto 7.3 % (3-14); Neutrophils Absolute Auto 4500 /uL (1500-7000); Neutrophils Percent Auto 59.9 % (50-75); Platelet Count 264 X10^3/uL (150-400); White Blood Cell Count 7.6 X10^3/uL (4.5-11.0)
[2022-08-08 15:18] LABS: Alanine Aminotransferase 27 IU/L (<35); Albumin 4.1 g/dL (3.5-5.0); Albumin Globulin Ratio 1.4 (1.0-2.8); Alkaline Phosphatase 86 U/L (38-126); Aspartate Aminotransferase 29 IU/L (14-36); BUN Creatinine Ratio 29.3 (6-22); Bilirubin Total 0.8 mg/dL (0.2-1.3); Blood Urea Nitrogen 17 mg/dL (7-17); Calcium 9.1 mg/dL (8.4-10.2); Carbon Dioxide 31 mmol/L (22-32); Chloride 101 mmol/L (98-107); Cholesterol 215 mg/dL (140-199); Estimated Glomerular Filt Rate > 60 mL/min (>60); Globulin 2.9 g/dL (1.7-4.1); Glucose 86 mg/dL (80-110); HDL Cholesterol 42 mg/dL (40-60); HEMOLYSIS < 15 (0-50); LDL Cholesterol Calculated 141 mg/dL (<100); Potassium 4.1 mmol/L (3.4-5.1); Sodium 136 mmol/L (137-145); Triglycerides 160 mg/dL (35-150)
[2022-08-08 15:48] LABS: TSH w/ Reflex to FT4 0.02 uIU/mL (0.47-4.68)
[2022-08-08 16:13] LABS: Free T4, Direct Thyroxine 1.44 ng/dL (0.78-2.19)
== END ==
PROVIDERS: PCP Family Medicine; Referring Provider Family Medicine; Visit Provider Family Medicine
DX: E03.9 Hypothyroidism, unspecified (principal); E78.5 Hyperlipidemia, unspecified
CPT/HCPCS: 36415; 80053; 80061; 84439; 84443; 85025

== ENCOUNTER → 2022-09-27 15:18 | Outpatient (CLI) | payer MEDICARE, OTHER, SELFPAY ==
[2022-09-27 17:21] LABS: TSH w/ Reflex to FT4 1.89 uIU/mL (0.47-4.68)
== END ==
PROVIDERS: PCP Family Medicine; Referring Provider Family Medicine; Visit Provider Family Medicine
DX: E03.9 Hypothyroidism, unspecified (principal)
CPT/HCPCS: 36415; 84443

== ENCOUNTER → 2023-09-25 16:21 | Outpatient (CLI) | payer MEDICARE, SELFPAY ==
[2023-09-25 17:17] LABS: Add Manual Diff / Slide Review NO; Basophils Absolute Auto 100 /uL (0-100); Basophils Percent Auto 0.9 % (0-2); Eosinophils Absolute Auto 100 /uL (0-450); Eosinophils Percent Auto 0.8 % (2-4); Hematocrit 38.6 % (36-46); Lymphocytes Absolute Auto 2400 /uL (1100-4500); Lymphocytes Percent Auto 34.7 % (25-40); Mean Corpuscular HGB Conc 33.8 % (30-36); Mean Corpuscular Hemoglobin 30.5 PG (26-34); Mean Corpuscular Volume 90.4 fL (80-100); Monocytes Absolute Auto 500 /uL (0-900); Monocytes Percent Auto 7.9 % (3-14); Neutrophils Absolute Auto 3800 /uL (1500-7000); Neutrophils Percent Auto 55.7 % (50-75); Platelet Count 240 X10^3/uL (150-400); Red Blood Cell Count 4.28 X10^6/uL (4.0-5.2); Red Cell Distribution Width 14.3 % (11.6-14.8); White Blood Cell Count 6.8 X10^3/uL (4.5-11.0)
[2023-09-25 17:55] LABS: Alanine Aminotransferase 24 IU/L (<35); Albumin 4.4 g/dL (3.5-5.0); Albumin Globulin Ratio 1.8 (1.0-2.8); Alkaline Phosphatase 61 U/L (38-126); Aspartate Aminotransferase 35 IU/L (14-36); BUN Creatinine Ratio 26.1 (6-22); Bilirubin Total 1.3 mg/dL (0.2-1.3); Blood Urea Nitrogen 18 mg/dL (7-17); Calcium 8.7 mg/dL (8.4-10.2); Carbon Dioxide 31 mmol/L (22-32); Chloride 103 mmol/L (98-107); Cholesterol 230 mg/dL (140-199); Estimated Glomerular Filt Rate > 60 mL/min (>60); Globulin 2.5 g/dL (1.7-4.1); Glucose 88 mg/dL (80-110); HDL Cholesterol 50 mg/dL (40-60); HEMOLYSIS < 15 (0-50); LDL Cholesterol Calculated 154 mg/dL (<100); Potassium 4.1 mmol/L (3.4-5.1); Sodium 138 mmol/L (137-145); Total Protein 6.9 g/dL (6.3-8.2); Triglycerides 129 mg/dL (35-150)
[2023-09-25 18:22] LABS: TSH w/ Reflex to FT4 1.47 uIU/mL (0.47-4.68)
== END ==
LOC: LAB 16:41
PROVIDERS: PCP Family Medicine; Referring Provider Family Medicine; Visit Provider Family Medicine
DX: E78.5 Hyperlipidemia, unspecified (principal); E03.9 Hypothyroidism, unspecified
CPT/HCPCS: 36415; 80053; 80061; 84443; 85025

== ENCOUNTER → 2024-01-16 09:22 | Outpatient (CLI) | payer MEDICARE, SELFPAY ==
[2024-01-16 10:54] LABS: Cholesterol 185 mg/dL (140-199); HDL Cholesterol 47 mg/dL (40-60); LDL Cholesterol Calculated 117 mg/dL (<100); Triglycerides 105 mg/dL (35-150)
== END ==
PROVIDERS: PCP Family Medicine; Referring Provider Family Medicine; Visit Provider Family Medicine
DX: E78.5 Hyperlipidemia, unspecified (principal)
CPT/HCPCS: 36415; 80061

== ENCOUNTER → 2024-08-23 18:00 | Outpatient (CLI) | payer MEDICARE, SELFPAY ==
[2024-08-23 19:52] LABS: Influenza A - CEPHEID Flu A NEGATIVE (NEGATIVE); Influenza B - CEPHEID Flu B NEGATIVE (NEGATIVE); Respiratory Syncytial Virus Negative (Negative)
[2024-08-23 19:54] LABS: COVID-19 CEPHEID 4-PLEX PCR Negative (Negative)
== END ==
PROVIDERS: PCP Family Medicine; Visit Provider Nurse Practitioner Family
DX: J02.9 Acute pharyngitis, unspecified (principal); R05.1 Acute cough
CPT/HCPCS: 0241U; 87070

== ENCOUNTER → 2024-09-30 11:00 | Outpatient (CLI) | payer MEDICARE, SELFPAY ==
[2024-09-30 11:32] LABS: Add Manual Diff / Slide Review NO; Basophils Absolute Auto 0 /uL (0-100); Basophils Percent Auto 0.5 % (0-2); Eosinophils Absolute Auto 100 /uL (0-450); Eosinophils Percent Auto 1.7 % (2-4); Hematocrit 39.6 % (36-46); Hemoglobin 13.2 g/dL (12.0-16.0); Lymphocytes Absolute Auto 2600 /uL (1100-4500); Lymphocytes Percent Auto 39.5 % (25-40); Mean Corpuscular HGB Conc 33.4 % (30-36); Mean Corpuscular Hemoglobin 30.6 PG (26-34); Mean Corpuscular Volume 91.7 fL (80-100); Monocytes Absolute Auto 500 /uL (0-900); Monocytes Percent Auto 7.9 % (3-14); Neutrophils Absolute Auto 3300 /uL (1500-7000); Neutrophils Percent Auto 50.4 % (50-75); Platelet Count 253 X10^3/uL (150-400); Red Blood Cell Count 4.31 X10^6/uL (4.0-5.2); Red Cell Distribution Width 13.9 % (11.6-14.8); White Blood Cell Count 6.6 X10^3/uL (4.5-11.0)
[2024-09-30 12:01] LABS: Alanine Aminotransferase 23 IU/L (<35); Albumin 4.3 g/dL (3.5-5.0); Albumin Globulin Ratio 1.7 (1.0-2.8); Alkaline Phosphatase 63 U/L (38-126); Aspartate Aminotransferase 28 IU/L (14-36); BUN Creatinine Ratio 25.4 (6-22); Bilirubin Total 1.3 mg/dL (0.2-1.3); Blood Urea Nitrogen 18 mg/dL (7-17); Calcium 8.9 mg/dL (8.4-10.2); Carbon Dioxide 29 mmol/L (22-32); Chloride 102 mmol/L (98-107); Cholesterol 220 mg/dL (140-199); Estimated Glomerular Filt Rate > 60 mL/min (>60); Globulin 2.6 g/dL (1.7-4.1); Glucose 87 mg/dL (70-99); HDL Cholesterol 45 mg/dL (40-60); HEMOLYSIS < 15 (0-50); LDL Cholesterol Calculated 154 mg/dL (<100); Potassium 3.9 mmol/L (3.4-5.1); Sodium 136 mmol/L (137-145); Total Protein 6.9 g/dL (6.3-8.2); Triglycerides 105 mg/dL (35-150)
[2024-09-30 12:12] LABS: Free T3, Triiodothyronine Free 3.09 pg/mL (2.77-5.27); Free T4, Direct Thyroxine 0.91 ng/dL (0.78-2.19)
[2024-09-30 12:25] LABS: Thyroid Stimulating Hormone 8.83 uIU/mL (0.47-4.68)
== END ==
PROVIDERS: PCP Family Medicine; Referring Provider Family Medicine; Visit Provider Family Medicine
DX: E03.9 Hypothyroidism, unspecified (principal); E78.5 Hyperlipidemia, unspecified
CPT/HCPCS: 36415; 80053; 80061; 84439; 84443; 84481; 85025

== ENCOUNTER → 2024-11-09 10:26 | Outpatient (CLI) | payer MEDICARE, SELFPAY | PROVIDERS: PCP Family Medicine; Visit Provider Registered Nurse | DX: R30.0 Dysuria (principal) | CPT/HCPCS: 87077; 87086; 87186 ==

== ENCOUNTER → 2025-02-06 10:28 | Outpatient (CLI) | payer MEDICARE, SELFPAY ==
[2025-02-06 12:05] LABS: Cholesterol 206 mg/dL (140-199); HDL Cholesterol 48 mg/dL (40-60); Triglycerides 167 mg/dL (35-150)
[2025-02-06 12:21] LABS: Free T3, Triiodothyronine Free 2.57 pg/mL (2.77-5.27); Free T4, Direct Thyroxine 1.10 ng/dL (0.78-2.19)
[2025-02-06 12:34] LABS: Thyroid Stimulating Hormone 0.785 uIU/mL (0.47-4.68)
== END ==
PROVIDERS: PCP Family Medicine; Referring Provider Family Medicine; Visit Provider Family Medicine
DX: E03.9 Hypothyroidism, unspecified (principal); E78.5 Hyperlipidemia, unspecified
CPT/HCPCS: 36415; 80061; 84439; 84443; 84481